=== PATIENT | female | born 1950 | race Caucasian/White ===

== ENCOUNTER → 2017-01-08 | Outpatient (CLI) | payer OTHER, BC ==
[~2017-01-08] VITALS: Ht 170.2 cm; Wt 84.5 kg
[~2017-01-08] MED LIST: CALCIUM PO; IBUPROFEN800 MG PO; LEVO-T88 MCG PO; MAGNESIUM OXID200 MG PO; SYNTHROID PO; SYNTHROID25 MCG PO; VITAMIN D22000 UNIT PO
== END | disposition home or self-care (01) ==
LOC: RAD 07:54
PROC: 0W9G3ZZ Drainage of Peritoneal Cavity, Percutaneous Approach (ICD-10-PCS; principal; 2017-01-08)
DX: R18.8 Other ascites (principal)

== ENCOUNTER 2017-05-04 14:18 | Emergency (ER) | payer OTHER, BC ==
[~2017-05-04] VITALS: Ht 170.2 cm; Wt 67.7 kg
[~2017-05-04 14:18] MED LIST changes: +CAL MAG ZINC +1 EAC1 PO; +ONDANSETRON HCL8 MG PO; +PACERONE200 MG PO; +PROCHLORPERAZIN10 MG PO; +TIROSINT137 MCG PO
[2017-05-04 16:18] VITALS: BP 109/73
== END 2017-05-04 16:05 | disposition short-term general hospital (02) ==
LOC: EME 14:18
DX: K65.1 Peritoneal abscess (principal); C56.9 Malignant neoplasm of unspecified ovary; Z92.21 Personal history of antineoplastic chemotherapy; Z93.3 Colostomy status; Z88.0 Allergy status to penicillin; Z88.1 Allergy status to other antibiotic agents
CPT/HCPCS: 87040; 99281; 99284; J3010; J7040

== ENCOUNTER → 2017-06-29 | Outpatient (CLI) | payer OTHER, BC ==
[~2017-06-29] MED LIST changes: +LEVAQUIN750 MG PO
== END | disposition home or self-care (01) ==
LOC: OPR 11:18 → EDSTATUS 11:30
PROC: 0W9G3ZX Drainage of Peritoneal Cavity, Percutaneous Approach, Diagnostic (ICD-10-PCS; principal; 2017-06-29)
DX: K65.1 Peritoneal abscess (principal); C56.9 Malignant neoplasm of unspecified ovary; Z93.2 Ileostomy status; Z88.0 Allergy status to penicillin; Z92.21 Personal history of antineoplastic chemotherapy; Z90.710 Acquired absence of both cervix and uterus; Z90.81 Acquired absence of spleen; Z90.79 Acquired absence of other genital organ(s)
CPT/HCPCS: 49406; 87070; 87075; 87076; 87205; C1729; J2250; J2310; J3010

== ENCOUNTER 2017-07-17 07:07 | Inpatient (IN) | payer OTHER, BC ==
[~2017-07-17] VITALS: Ht 167.6 cm; Wt 97.8 kg
[~2017-07-17 07:07] MED LIST changes: +TIROSINT112 MCG PO; -TIROSINT137 MCG PO
[2017-07-17 07:40] LABS: HEMATOCRIT 27.8 % (36.0-46.0); MCH 32.3 PG (29.0-34.0); MCHC 33.8 G/DL (30.0-36.0); MCV 95.5 FL (83-99); MEAN PLAT.VOLUME 10.3 uM^3 (9.5-12.4); NRBC (%) 0.4 /100 WBC (0-0); RBC DIS.WIDTH-CV 16.9 % (11.8-14.6); RBC DIS.WIDTH-SD 58.2 % (39-53); RED BLOOD COUNT 2.91 M/uL (3.80-5.20); WHITE BLOOD COUNT 10.7 K/uL (4.1-10.2)
[2017-07-17 07:41] LABS: PLATELET COUNT 191 K/uL (156-360)
[2017-07-17 08:00] LABS: ADD MIUA? YES; BILIRUBIN NEGATIVE; BLOOD SMALL; COLOR YELLOW ((YELLOW)); GLUCOSE (STRIP) NEGATIVE; KETONES NEGATIVE; LEUKOCYTES LARGE; NITRITE NEGATIVE; PROTEIN (STRIP) 100; SPECIFIC GRAVITY 1.018 (1.000-1.030); UROBILINOGEN 0.2 MG/DL (0.2-1.0)
[2017-07-17 08:15] LABS: BACTERIA RARE /HPF; EPITHELIAL CELLS NONE SEEN /HPF; HYALINE CASTS 0-5 /LPF; MUCUS TRACE /LPF; RED BLOOD CELLS TNTC /HPF (0-5); UCUL ADDED? YES; WHITE BLOOD CELLS TNTC /HPF (0-5)
[2017-07-17 08:50] LABS: ANION GAP 10 MEQ/L (2-14); CHLORIDE 104 MEQ/L (99-109); POTASSIUM 3.8 MEQ/L (3.7-5.4); SAMPLE HEMOLYSIS CHECK 0; SAMPLE ICTERIC CHECK 0; SAMPLE LIPEMIA CHECK 0; SODIUM 138 MEQ/L (136-147); TOTAL BILIRUBIN 0.3 MG/DL (0.0-1.0)
[2017-07-17 08:55] LABS: ALKALINE PHOSPHATASE 71 IU/L (3-129); GFR ESTIMATE (CALCULATED) > 59 mL/min/; GLUCOSE 95 mg/dL (70-99); LIPASE 18 U/L (1.0-51.0); UREA NITROGEN (BUN) 16 mg/dL (9-23)
[2017-07-17 13:56] VITALS: BP 121/63
[2017-07-17 18:57] VITALS: BP 103/60
[2017-07-17 23:07] VITALS: BP 93/54
[2017-07-18 03:53] VITALS: BP 108/51
[2017-07-18 06:01] LABS: HEMATOCRIT 25.2 % (36.0-46.0); MCH 32.2 PG (29.0-34.0); MCHC 32.9 G/DL (30.0-36.0); MCV 97.7 FL (83-99); NRBC (%) 0.3 /100 WBC (0-0); PLATELET COUNT 167 K/uL (156-360); RBC DIS.WIDTH-CV 17.3 % (11.8-14.6); RBC DIS.WIDTH-SD 61.6 % (39-53); RED BLOOD COUNT 2.58 M/uL (3.80-5.20); WHITE BLOOD COUNT 9.1 K/uL (4.1-10.2)
[2017-07-18 06:57] LABS: ANION GAP 10 MEQ/L (2-14); CHLORIDE 109 MEQ/L (99-109); GFR ESTIMATE (CALCULATED) > 59 mL/min/; GLUCOSE 85 mg/dL (70-99); POTASSIUM 3.7 MEQ/L (3.7-5.4); SAMPLE HEMOLYSIS CHECK 0; SAMPLE ICTERIC CHECK 0; SAMPLE LIPEMIA CHECK 0; SODIUM 141 MEQ/L (136-147); UREA NITROGEN (BUN) 11 mg/dL (9-23)
[2017-07-18 08:45] VITALS: BP 104/59
[2017-07-18 11:25] VITALS: BP 92/62
[2017-07-18 16:12] VITALS: BP 122/58
[2017-07-19 06:17] LABS: EOSINOPHIL (%) 0.7 % (0-5); EOSINOPHIL COUNT 0.1 K/uL (0-0.3); HEMATOCRIT 24.5 % (36.0-46.0); IMMATURE GRANULOCYTE (%) 0.8 % (0.0-0.7); IMMATURE GRANULOCYTE COUNT 0.1 K/uL; INSTRUMENT ABS NEUTROPHIL CT 6.5 K/uL; LYMPHOCYTE COUNT 2.2 K/uL (1.0-2.8); MCH 31.3 PG (29.0-34.0); MCHC 32.2 G/DL (30.0-36.0); MCV 97.2 FL (83-99); MEAN PLAT.VOLUME 10.4 uM^3 (9.5-12.4); MONOCYTE (%) 8.8 % (3-12); MONOCYTE COUNT 0.9 K/uL (0-0.8); NEUTROPHIL (%) 66.8 % (45-76); NEUTROPHIL COUNT 6.5 K/uL (1.8-6.4); PLATELET COUNT 148 K/uL (156-360); RBC DIS.WIDTH-SD 59.6 % (39-53); RED BLOOD COUNT 2.52 M/uL (3.80-5.20); WHITE BLOOD COUNT 9.7 K/uL (4.1-10.2)
[2017-07-19 06:52] LABS: ANION GAP 8 MEQ/L (2-14); CHLORIDE 108 MEQ/L (99-109); GFR ESTIMATE (CALCULATED) > 59 mL/min/; GLUCOSE 85 mg/dL (70-99); POTASSIUM 3.7 MEQ/L (3.7-5.4); SAMPLE HEMOLYSIS CHECK 0; SAMPLE ICTERIC CHECK 0; SAMPLE LIPEMIA CHECK 0; SODIUM 142 MEQ/L (136-147); UREA NITROGEN (BUN) 13 mg/dL (9-23)
[2017-07-19 07:55] VITALS: BP 126/61
[2017-07-19 17:01] VITALS: BP 124/64
[2017-07-20 01:55] VITALS: BP 89/54
[2017-07-20 06:12] LABS: EOSINOPHIL (%) 0.8 % (0-5); EOSINOPHIL COUNT 0.1 K/uL (0-0.3); HEMATOCRIT 23.3 % (36.0-46.0); IMMATURE GRANULOCYTE (%) 0.5 % (0.0-0.7); IMMATURE GRANULOCYTE COUNT 0.1 K/uL; INSTRUMENT ABS NEUTROPHIL CT 6.1 K/uL; LYMPHOCYTE COUNT 2.2 K/uL (1.0-2.8); MCH 32.6 PG (29.0-34.0); MCHC 33.5 G/DL (30.0-36.0); MCV 97.5 FL (83-99); MEAN PLAT.VOLUME 10.2 uM^3 (9.5-12.4); MONOCYTE (%) 9.4 % (3-12); MONOCYTE COUNT 0.9 K/uL (0-0.8); NEUTROPHIL (%) 65.4 % (45-76); NEUTROPHIL COUNT 6.1 K/uL (1.8-6.4); PLATELET COUNT 128 K/uL (156-360); RBC DIS.WIDTH-CV 17.2 % (11.8-14.6); RBC DIS.WIDTH-SD 59.7 % (39-53); RED BLOOD COUNT 2.39 M/uL (3.80-5.20); WHITE BLOOD COUNT 9.3 K/uL (4.1-10.2)
[2017-07-20 06:45] LABS: ANION GAP 8 MEQ/L (2-14); CHLORIDE 108 MEQ/L (99-109); GFR ESTIMATE (CALCULATED) > 59 mL/min/; GLUCOSE 82 mg/dL (70-99); POTASSIUM 3.4 MEQ/L (3.7-5.4); SAMPLE HEMOLYSIS CHECK 0; SAMPLE ICTERIC CHECK 0; SAMPLE LIPEMIA CHECK 0; SODIUM 143 MEQ/L (136-147); UREA NITROGEN (BUN) 13 mg/dL (9-23)
[2017-07-20 07:30] VITALS: BP 129/70
[2017-07-20 11:39] VITALS: BP 123/58
[2017-07-20 16:36] VITALS: BP 121/63
[2017-07-21 00:29] VITALS: BP 98/50
[2017-07-21 06:11] LABS: EOSINOPHIL (%) 0.6 % (0-5); EOSINOPHIL COUNT 0.1 K/uL (0-0.3); HEMATOCRIT 24.7 % (36.0-46.0); IMMATURE GRANULOCYTE (%) 0.7 % (0.0-0.7); IMMATURE GRANULOCYTE COUNT 0.1 K/uL; INSTRUMENT ABS NEUTROPHIL CT 6.3 K/uL; LYMPHOCYTE COUNT 1.9 K/uL (1.0-2.8); MCH 31.1 PG (29.0-34.0); MCHC 32.4 G/DL (30.0-36.0); MCV 96.1 FL (83-99); MEAN PLAT.VOLUME 9.8 uM^3 (9.5-12.4); MONOCYTE (%) 7.5 % (3-12); MONOCYTE COUNT 0.7 K/uL (0-0.8); NEUTROPHIL (%) 69.8 % (45-76); NEUTROPHIL COUNT 6.3 K/uL (1.8-6.4); PLATELET COUNT 132 K/uL (156-360); RBC DIS.WIDTH-CV 17.1 % (11.8-14.6); RBC DIS.WIDTH-SD 58.4 % (39-53); RED BLOOD COUNT 2.57 M/uL (3.80-5.20)
[2017-07-21 06:37] VITALS: BP 114/72
[2017-07-21 08:01] VITALS: BP 115/60
[2017-07-21] MEDS ORDERED: METRONIDAZOLE500 MG PO (13:57)
[2017-07-21] MEDS ORDERED: BACTRIM,SEPT1 TABLET PO (13:57)
== END 2017-07-21 15:17 | disposition home health service (06) | DRG 199 ==
LOC: EME 07:07 → ENRESERV 10:57 → 5EAST 10:57 → EDOF 10:57 → CANRESERV 10:57 → ENRESERV 11:44 → 5EAST 13:43 → ENPENDDIS 07-21 → 5EAST 07-21 15:17
PROVIDERS: Emergency Medicine; Internal Medicine; Student in an Organized Health Care Education/Training Program
PROC: 0W9930Z Drainage of Right Pleural Cavity with Drainage Device, Percutaneous Approach (ICD-10-PCS; principal; 2017-07-17)
DX: J93.9 Pneumothorax, unspecified (principal); K65.1 Peritoneal abscess; N73.9 Female pelvic inflammatory disease, unspecified; N82.8 Other female genital tract fistulae; C56.9 Malignant neoplasm of unspecified ovary; D64.81 Anemia due to antineoplastic chemotherapy; N39.0 Urinary tract infection, site not specified; E03.9 Hypothyroidism, unspecified; Z90.710 Acquired absence of both cervix and uterus; Z90.81 Acquired absence of spleen; Z93.2 Ileostomy status
CPT/HCPCS: 32560; 71010; 71020; 74177; 80048; 80053; 81003; 83690; 85025; 85027; 87086; 99281; 99285; C1769; J0692; J1170; J1335; J1650; J2060; J2405; J7030; J7050; S0030

== ENCOUNTER 2017-07-26 10:04 | Inpatient (IN) | payer OTHER, BC ==
[~2017-07-26] VITALS: Ht 167.6 cm; Wt 66.1 kg
[~2017-07-26 10:04] MED LIST changes: +BACTRIM,SEPT1 TABLET PO; +METRONIDAZOLE500 MG PO
[2017-07-26 11:30] LABS: HEMATOCRIT 30.5 % (36.0-46.0); MCH 33.3 PG (29.0-34.0); MCHC 34.4 G/DL (30.0-36.0); MCV 96.8 FL (83-99); MEAN PLAT.VOLUME 10.1 uM^3 (9.5-12.4); PLATELET COUNT 237 K/uL (156-360); RBC DIS.WIDTH-CV 17.2 % (11.8-14.6); RBC DIS.WIDTH-SD 59.6 % (39-53); RED BLOOD COUNT 3.15 M/uL (3.80-5.20); WHITE BLOOD COUNT 8.5 K/uL (4.1-10.2)
[2017-07-26 11:33] LABS: INTER. NORMALIZED RATIO 1.2; PROTHROMBIN TIME 13.7 SEC (10.2-12.9)
[2017-07-26 11:39] LABS: CHLORIDE 101 mEq/L (99-109); POTASSIUM 4.4 mEq/L (3.7-5.4); SODIUM 134 mEq/L (136-147)
[2017-07-26 11:40] LABS: GLUCOSE 99 mg/dL (70-99)
[2017-07-26 11:42] LABS: ANION GAP 12 MEQ/L (2-14)
[2017-07-26 11:44] LABS: GFR ESTIMATE (CALCULATED) > 59 mL/min/
[2017-07-26 11:46] LABS: UREA NITROGEN (BUN) 21 mg/dL (9-23)
[2017-07-26] MEDS ORDERED: CLARITIN,ALAVAR10 MG PO (15:50)
[2017-07-26 16:08] VITALS: BP 143/67
[2017-07-26 23:32] VITALS: BP 105/66
[2017-07-27 07:50] VITALS: BP 109/76
[2017-07-27 15:32] VITALS: BP 120/71
[2017-07-27 23:09] VITALS: BP 99/62
[2017-07-28 07:30] VITALS: BP 97/63
== END 2017-07-28 14:29 | disposition home or self-care (01) | DRG 199 ==
LOC: EME 10:04 → 5EAST 13:57 → EDOF 13:57 → ENRESERV 13:59 → EDOF 14:12 → ENRESERV 14:27 → 5EAST 15:59
PROVIDERS: Emergency Medicine
DX: J93.83 Other pneumothorax (principal); K65.1 Peritoneal abscess; N82.8 Other female genital tract fistulae; C78.2 Secondary malignant neoplasm of pleura; J91.0 Malignant pleural effusion; T45.1X5A Adverse effect of antineoplastic and immunosuppressive drugs, initial encounter; E89.0 Postprocedural hypothyroidism; D64.9 Anemia, unspecified; L65.8 Other specified nonscarring hair loss; Z88.1 Allergy status to other antibiotic agents; Z88.0 Allergy status to penicillin; Z87.440 Personal history of urinary (tract) infections; Z93.2 Ileostomy status; Z90.81 Acquired absence of spleen; Z90.710 Acquired absence of both cervix and uterus; Z90.49 Acquired absence of other specified parts of digestive tract; Z86.010 Personal history of colon polyps; Z80.3 Family history of malignant neoplasm of breast
CPT/HCPCS: 71010; 71020; 80048; 85027; 85610; 99281; 99285; J1644; J7040

== ENCOUNTER 2017-08-23 16:06 | Emergency (ER) | payer OTHER, BC ==
[~2017-08-23] VITALS: Ht 167.6 cm; Wt 70.9 kg
[~2017-08-23 16:06] MED LIST changes: +CLARITIN,ALAVAR10 MG PO
[2017-08-23 16:59] LABS: EOSINOPHIL (%) 0.4 % (0-5); HEMATOCRIT 28.4 % (36.0-46.0); IMMATURE GRANULOCYTE (%) 0.5 % (0.0-0.7); INSTRUMENT ABS NEUTROPHIL CT 5.8 K/uL; LYMPHOCYTE COUNT 1.5 K/uL (1.0-2.8); MCH 33.4 PG (29.0-34.0); MCHC 34.2 G/DL (30.0-36.0); MCV 97.9 FL (83-99); MEAN PLAT.VOLUME 9.4 uM^3 (9.5-12.4); MONOCYTE (%) 8.4 % (3-12); MONOCYTE COUNT 0.7 K/uL (0-0.8); NEUTROPHIL (%) 72.1 % (45-76); NEUTROPHIL COUNT 5.8 K/uL (1.8-6.4); PLATELET COUNT 275 K/uL (156-360); RBC DIS.WIDTH-CV 16.3 % (11.8-14.6); RBC DIS.WIDTH-SD 58.1 % (39-53); WHITE BLOOD COUNT 8.1 K/uL (4.1-10.2)
[2017-08-23 17:08] LABS: CHLORIDE 104 mEq/L (99-109); POTASSIUM 4.2 mEq/L (3.7-5.4); SODIUM 139 mEq/L (136-147)
[2017-08-23 17:09] LABS: GLUCOSE 95 mg/dL (70-99)
[2017-08-23 17:11] LABS: ANION GAP 13 MEQ/L (2-14)
[2017-08-23 17:13] LABS: GFR ESTIMATE (CALCULATED) > 59 mL/min/
[2017-08-23 17:14] LABS: UREA NITROGEN (BUN) 18 mg/dL (9-23)
[2017-08-23 19:37] LABS: ADD MIUA? YES; BILIRUBIN NEGATIVE; BLOOD NEGATIVE; COLOR YELLOW ((YELLOW)); GLUCOSE (STRIP) NEGATIVE; KETONES NEGATIVE; LEUKOCYTES TRACE; NITRITE NEGATIVE; PROTEIN (STRIP) 30; SPECIFIC GRAVITY 1.021 (1.000-1.030); UROBILINOGEN 0.2 MG/DL (0.2-1.0)
[2017-08-23 19:48] LABS: BACTERIA RARE /HPF; EPITHELIAL CELLS RARE /HPF; MUCUS TRACE /LPF; RED BLOOD CELLS 0-5 /HPF (0-5); UCUL ADDED? YES; UNCLASSIFIED CASTS 0-5 /LPF; WHITE BLOOD CELLS 30-40 /HPF (0-5)
[2017-08-23] MEDS ORDERED: COLACE100 MG PO (20:35)
[2017-08-23] MEDS ORDERED: PERCOCET 5/31 TABLET PO (20:35)
[2017-08-23 20:59] VITALS: BP 105/63
== END 2017-08-23 21:00 | disposition home or self-care (01) ==
LOC: EME 16:06 → RME 16:06
PROC: 0U9L0ZZ Drainage of Vestibular Gland, Open Approach (ICD-10-PCS; principal; 2017-08-23)
DX: N75.0 Cyst of Bartholin's gland (principal); N76.2 Acute vulvitis; Z85.43 Personal history of malignant neoplasm of ovary; Z92.21 Personal history of antineoplastic chemotherapy; Z86.718 Personal history of other venous thrombosis and embolism; Z79.01 Long term (current) use of anticoagulants; Z88.0 Allergy status to penicillin; Z88.1 Allergy status to other antibiotic agents
CPT/HCPCS: 80048; 81003; 83605; 85025; 87070; 87075; 87077; 87086 GA; 87147; 87186; 87205

== ENCOUNTER → 2018-01-17 | Outpatient (CLI) | payer OTHER, BC ==
[~2018-01-17] MED LIST changes: +COLACE100 MG PO; +ELIQUIS5 MG PO; +PERCOCET 5/31 TABLET PO
== END | disposition home or self-care (01) ==
LOC: RES 10:53
DX: R94.2 Abnormal results of pulmonary function studies (principal)
CPT/HCPCS: 94060; 94726; 94729

== ENCOUNTER → 2018-05-06 | Outpatient (CLI) | payer OTHER, BC ==
[~2018-05-06] MED LIST changes: +ASPIR 8181 M1 PO; +LEXAPRO5 MG PO
== END | disposition home or self-care (01) ==
LOC: RAD 10:50 → EDSTATUS 11:00
PROC: 0W993ZZ Drainage of Right Pleural Cavity, Percutaneous Approach (ICD-10-PCS; principal; 2018-05-06)
DX: J90 Pleural effusion, not elsewhere classified (principal)
CPT/HCPCS: 76942; 88108; 88305